=== PATIENT | female | born 1970 | race Caucasian/White ===

== ENCOUNTER 2016-06-26 19:05 | Emergency (ER) | payer SELFPAY ==
[2016-06-26 21:34] VITALS: BMI 35.2
[2016-06-26] MEDS ORDERED: OXYCODONE HCL 5 MG TABLET PO ONE (22:45)
[2016-06-26] MEDS ORDERED: ONDANSETRON HCL 4 MG ODT TAB PO ONE (22:45)
--- NOTE | 2016-06-26 22:48 | EDPRACDOC ---
- General Information Chief Complaint: Abdominal Pain Stated Complaint: ABDOMINAL PAIN, BLEEDING FROM [place] Time Seen by Provider: 06/26/16 22:05 Information Source: Patient Mode Of Arrival: Car Home Medications: Home Medications Ketorolac Tromethamine [Toradol] 10 mg PO Q6H PRN #20 tab 06/27/16 Levofloxacin [Levaquin] 750 mg PO DAILY #7 tab 06/27/16 Allergies/Adverse Reactions: Allergies Allergy/AdvReac Type Severity Reaction Status Date / Time Penicillins Allergy Hives* Verified 06/26/16 21:34 mayonnaise Allergy See Uncoded 06/26/16 21:34 Comments - History of Present Illness Onset: YESTERDAY HPI: C/o umbilical mass with pain and bleeding staring yesterday am. Denies cp, sob, N/V/D, fever, chnages in urine or BM. Med hx = none. Surgical hx = none. Pain Location: Reports: Periumbilical Pain Context: Reports: Spontaneous Pain Severity: Moderate Pain Quality: Reports: Burning Pain Radiation: Reports: No Radiation Last Menstrual Period: 2 DAYS : No Adult Abdominal History: Denies: Abdominal Surgery Female Abdominal History: Denies: Abdominal Surgery Modifying Factors: improves with: Nothing Oral Intake: Normal Urinary Output: Normal ED Past Medical History - History Reviewed Yes Nurses notes reviewed and agree except as marked - Patient Medical History Psychological History: Denies: Depression Surgical History: Denies: Hysterectomy - Social Medical History Smoking Status: Former smoker EDM Review of Systems - Review of Systems ROS Negative Except as Marked: Yes All systems reviewed and were negative except as marked Integumentary: Other (umbilical mass with tenderness and redness) - Physical Exam Constitutional: No apparent distress, Alert Oriented to: Time, Person, Place Last recorded Vital Signs: Last Vital Signs Temp 98.0 F 06/27/16 01:35 Pulse 71 06/27/16 01:35 Resp 20 06/27/16 01:35 BP 135/77 06/27/16 01:35 Pulse Ox 100 06/27/16 01:35 Oxygen Pulse Oxygen Saturation 100 O2 Device Room Air Oxygen Flow Rate Fraction of Inspired Oxygen ( FIO2) - HEENT Head: Normal Eye Exam: negative: Conjunctival Injection, Scleral Icterus Oropharynx: negative: Drooling TMJ: Normal Nose: No Symptoms Reported Neck: Normal - Respiratory/Cardiovascular Respiratory: Normal - CTA Cardiovascular: Normal - GI Auscultation: Normal Palpation: Normal Tenderness: Mild, Periumbilical - Musculoskeletal Back: Normal Extremities: Normal - Integumentary Skin: Normal - Neurologic Mood Description: Normal Thought: Coherent Perception: Normal - Results 06/26/16 23:21 06/26/16 23:21 WBC 9.3 xk/uL (3.8-10.8) 06/26/16 23:21 RBC 4.48 xM/uL (4.20-5.40) 06/26/16 23:21 Hgb 12.3 g/dL (12.0-16.0) 06/26/16 23:21 Hct 37.7 % (36-47) 06/26/16 23:21 MCV 84 fL (81-99) 06/26/16 23:21 MCH 27.5 pg (27-32) 06/26/16 23:21 MCHC 32.7 g/dl (33-36) L 06/26/16 23:21 RDW 14.7 % (11.5-14.5) H 06/26/16 23:21 Plt Count 232 xk/uL (130-400) 06/26/16 23:21 MPV 7.7 fL (7.4-10.4) 06/26/16 23:21 Neut % (Auto) 71.1 % (45-76) 06/26/16 23:21 Lymph % (Auto) 21.5 % (17-44) 06/26/16 23:21 Hopkins % (Auto) 5.4 % (3-10) 06/26/16 23:21 Eos % (Auto) 1.3 % (0-5) 06/26/16 23:21 Baso % (Auto) 0.7 % (0-2) 06/26/16 23:21 Absolute Neuts (auto) 6.60 xk/uL (1.7-8.2) 06/26/16 23:21 Absolute Lymphs (auto) 1.95 xk/uL (0.65-4.75) 06/26/16 23:21 Sodium 140 mEq/L (137-146) 06/26/16 23:21 Potassium 3.7 mEq/L (3.5-5.1) 06/26/16 23:21 Chloride 104 mEq/L (98-107) 06/26/16 23:21 Carbon Dioxide 27 mMOL/L (22-33) 06/26/16 23:21 Anion Gap 13 mEq/L (8-16) 06/26/16 23:21 BUN 12 MG/DL (7-17) 06/26/16 23:21 Creatinine 0.60 MG/DL (0.52-1.04) 06/26/16 23:21 Estimated GFR (MDRD) > 60 mL/min (>=60) 06/26/16 23:21 Glucose 91 mg/dL (70-99) 06/26/16 23:21 Calculated Osmolality 269 MOs/Kg (270-290) L 06/26/16 23:21 Calcium 9.0 MG/DL (8.4-10.2) 06/26/16 23:21 Corrected Calcium 9.1 MG/DL (8.4-10.2) 06/26/16 23:21 Total Bilirubin 0.5 MG/DL (0.2-1.3) 06/26/16 23:21 AST 23 IU/L (14-36) 06/26/16 23:21 ALT 27 IU/L (9-52) 06/26/16 23:21 Alkaline Phosphatase 104 IU/L (38-126) 06/26/16 23:21 Total Protein 7.7 G/DL (6.3-8.2) 06/26/16 23:21 Albumin 3.9 G/DL (3.5-5.0) 06/26/16 23:21 Lab Results 06/26/16 06/26/16 23:21 23:21 WBC 9.3 RBC 4.48 Hgb 12.3 Hct 37.7 MCV 84 MCH 27.5 MCHC 32.7 L RDW 14.7 H Plt Count 232 MPV 7.7 Neut % (Auto) 71.1 Lymph % (Auto) 21.5 Hopkins % (Auto) 5.4 Eos % (Auto) 1.3 Baso % (Auto) 0.7 Absolute Neuts (auto) 6.60 Absolute Lymphs (auto) 1.95 Sodium 140 Potassium 3.7 Chloride 104 Carbon Dioxide 27 Anion Gap 13 BUN 12 Creatinine 0.60 Estimated GFR (MDRD) > 60 Glucose 91 Calculated Osmolality 269 L Calcium 9.0 Corrected Calcium 9.1 Total Bilirubin 0.5 AST 23 ALT 27 Alkaline Phosphatase 104 Total Protein 7.7 Albumin 3.9 - Diagnostic Imaging Abdomen Image interpreted by: Radiologist 06/27/16 00:48 EXAM: CT ABDOMEN AND PELVIS WITH CONTRAST TECHNIQUE: Multidetector CT imaging of the abdomen and pelvis was performed using the standard protocol following bolus administration of intravenous contrast. CONTRAST: 100 cc Isovue 370 intravenous COMPARISON: 03/06/2015 FINDINGS: Lower chest and abdominal wall: New fat reticulation and skin thickening around the umbilicus. No abscess. Small fatty umbilical hernia is visible on sagittal reformats. No communication with the bladder apex. Hepatobiliary: 15 mm right hepatic cystNo evidence of biliary obstruction or stone. Pancreas: Unremarkable. Spleen: Unremarkable. Adrenals/Urinary Tract: Negative adrenals. No hydronephrosis or stone. Unremarkable bladder. Reproductive:IUD which is in good position. Stomach/Bowel: No obstruction. No appendicitis. Vascular/Lymphatic: No acute vascular abnormality. Large left great saphenous likely related to varicosity. No mass or adenopathy. Peritoneal: No ascites or pneumoperitoneum. Musculoskeletal: No acute abnormalities. IMPRESSION: 1. Cellulitis around the umbilicus without abscess. 2. Tiny fatty umbilical hernia. Electronically Signed By: Tejas Baxter M.D. On: 06/27/2016 00:20 Decision Time to Discharge: 01:01 - Departure Disposition: Home Condition: Stable Final Diagnosis: Umbilical hernia Qualifiers: Obstruction and gangrene presence: without obstruction or gangrene Qualified Code(s): K42.9 - Umbilical hernia without obstruction or gangrene Cellulitis Qualifiers: Site of cellulitis: unspecified site Qualified Code(s): L03.90 - Cellulitis, unspecified Instructions: Cellulitis (ED), Umbilical Hernia (ED), Acute Abdominal Pain (ED) Education/Counseling Given To: Patient, Family Member Education/Counseling Given Regarding: Diagnosis, Treatment, Prognosis, Follow Up Referrals: None,No Provider [Primary Care Provider] - One Week Prescriptions: New Ketorolac Tromethamine [Toradol] 10 mg PO Q6H PRN #20 tab PRN Reason: Pain Levofloxacin [Levaquin] 750 mg PO DAILY #7 tab Additional Instructions: Follow up with primary care. Return to ED for any new or worsening symptoms.
[2016-06-26] MEDS ORDERED: Pharmacy Review for Metformin - IV Contrast Given SCH ×2 (23:00→23:45)
[2016-06-26 23:37] LABS: AUTOMATED BASOPHIL 0.7 % (0-2); AUTOMATED EOSINOPHIL 1.3 % (0-5); AUTOMATED LYMPH 21.5 % (17-44); AUTOMATED MONOCYTE 5.4 % (3-10); AUTOMATED NEUTROPHIL 71.1 % (45-76); MPV 7.7 fL (7.4-10.4)
[2016-06-26 23:48] LABS: BLOOD UREA NITROGEN 12 MG/DL (7-17); CALC CORRECTED 9.1 MG/DL (8.4-10.2); CALCULATED OSMOLALITY 269 MOs/Kg (270-290); CHLORIDE 104 mEq/L (98-107); GLUCOSE 91 mg/dL (70-99); SODIUM LEVEL 140 mEq/L (137-146); TOTAL PROTEIN 7.7 G/DL (6.3-8.2)
--- NOTE | 2016-06-27 00:23 | DIRPT ---
CLINICAL DATA: Abdominal pain and fever EXAM: CT ABDOMEN AND PELVIS WITH CONTRAST TECHNIQUE: Multidetector CT imaging of the abdomen and pelvis was performed using the standard protocol following bolus administration of intravenous contrast. CONTRAST: 100 cc Isovue 370 intravenous COMPARISON: 03/06/2015 FINDINGS: Lower chest and abdominal wall: New fat reticulation and skin thickening around the umbilicus. No abscess. Small fatty umbilical hernia is visible on sagittal reformats. No communication with the bladder apex. Hepatobiliary: 15 mm right hepatic cystNo evidence of biliary obstruction or stone. Pancreas: Unremarkable. Spleen: Unremarkable. Adrenals/Urinary Tract: Negative adrenals. No hydronephrosis or stone. Unremarkable bladder. Reproductive:IUD which is in good position. Stomach/Bowel: No obstruction. No appendicitis. Vascular/Lymphatic: No acute vascular abnormality. Large left great saphenous likely related to varicosity. No mass or adenopathy. Peritoneal: No ascites or pneumoperitoneum. Musculoskeletal: No acute abnormalities. IMPRESSION: 1. Cellulitis around the umbilicus without abscess. 2. Tiny fatty umbilical hernia. Electronically Signed By: Tejas Baxter M.D. On: 06/27/2016 00:20
[2016-06-27] MEDS ORDERED: LEVOFLOXACIN 750 MG TAB PO ONE (01:26)
[2016-06-27] MEDS ORDERED: TRAMADOL HCL 50 MG TAB PO ONE (01:26)
[2016-06-27 01:37] VITALS: BP 135/77; PULSE 71; TEMP 98
== END 2016-06-27 01:35 | disposition home or self-care (01) ==
LOC: ED 19:05
DX: K42.9 Umbilical hernia without obstruction or gangrene (principal); L03.90 Cellulitis, unspecified
CPT/HCPCS: 36415; 74177; 80053; 85025; 99284; A9698; J3490